=== PATIENT | male | born 1985 | race Caucasian/White ===

== ENCOUNTER 2018-07-23 14:27 | Emergency (ER) | payer SELFPAY ==
[~2018-07-23] VITALS: Ht 170.2 cm; Wt 86.4 kg
[2018-07-23 14:32] VITALS: BP 144/97
--- NOTE | 2018-07-23 14:40 | NUR ---
C/O RT EYE/ERYTHEMA PAIN WITH RT SIDED HEAD ACHE X 4 DAYS; DENIES INJURY, N/V/D OR DIZZINESS. STATES HE WAS SEEN PREVIOUSLY AND DGX WITH CELLULITIS OF THE RIGHT EYE BUT THE DROPS ARE NOT WORKING. SKIN IS PINK/WARM/DRY; AAOX4 WITH EVEN AND STEADY GAIT; LUNGS CLEAR BL; HR EVEN AND REGULAR; PT DENIES ANY FEVER, CP, SOB, OR COUGH AT THIS TIME; PATIENT STATES PAIN OF 10/10 AT THIS TIME; VSS; PATIENT POSITIONED FOR COMFORT; HOB ELEVATED; BEDRAILS UP X2; BED DOWN. ER MD MADE AWARE OF PT STATUS.
--- NOTE | 2018-07-23 14:50 | NUR ---
DR ROSADO AT BEDSIDE WITH PATIENT
[2018-07-23 15:14] VITALS: BP 144/97
--- NOTE | 2018-07-23 15:14 | NUR ---
Patient discharged with v/s stable. Written and verbal after care instructions given and explained. Patient alert, oriented and verbalized understanding of instructions. Ambulatory with steady gait. All questions addressed prior to discharge. ID band removed. Patient advised to follow up with PMD. Rx of KETOROLAC TROMETHAMINE, AND CIPROFLOXACIN given. Patient educated on indication of medication including possible reaction and side effects. Opportunity to ask questions provided and answered.
== END 2018-07-23 15:14 | disposition home or self-care (01) ==
LOC: MED 14:27
DX: H20.9 Unspecified iridocyclitis (principal)
CPT/HCPCS: 99283